=== PATIENT | male | born 1960 | race Asian ===

== ENCOUNTER 2018-12-08 15:19 | Emergency (ER) | payer BC ==
--- NOTE | 2018-12-08 15:31 | ED Physician Documentation ---
PD HPI ABD PAIN - Stated complaint Stated Complaint: ABD PX/NAUSEA - Chief complaint Chief Complaint: Abd Pain - History obtained from History obtained from: Patient - History of Present Illness Timing - onset: How many hours ago (2) Timing - details: Abrupt onset, Still present Quality: Cramping, Aching, Pain Location: RUQ, Epigastric Radiation: No: Lower back, Left flank, Right flank Improved by: No: Laying still, BM Worsened by: Moving, Palpation Associated symptoms: Nausea. No: Fever, Vomiting, Diarrhea, Dysuria Similar symptoms before: Has not had sx before (had abrupt pain in flank due to kidney stone about 5 years ago. Had not had pain in this area before.) Recently seen: Not recently seen Review of Systems Constitutional: denies: Fever, Chills, Myalgias Nose: denies: Rhinorrhea / runny nose, Congestion Throat: denies: Sore throat Respiratory: denies: Cough GI: reports: Abdominal Pain, Nausea. denies: Abdominal Swelling, Vomiting, Diarrhea : denies: Dysuria, Frequency Skin: denies: Rash, Lesions PD PAST MEDICAL HISTORY - Past Medical History Cardiovascular: None Respiratory: None Neuro: None Endocrine/Autoimmune: None GI: None : Kidney stones Musculoskeletal: None - Present Medications Home Medications: Ambulatory Orders Medication Instructions Recorded Confirmed Dicyclomine [Bentyl] 10 mg PO QID PRN #15 capsule 12/08/18 Hydrocodone/Acetaminophen [[place] 1 each PO Q6H PRN #15 tablet 12/08/18 5-325 Tablet] Ondansetron Odt [Zofran] 4 mg TL Q6H PRN #10 tablet 12/08/18 - Allergies Allergies/Adverse Reactions: Allergies Allergy/AdvReac Type Severity Reaction Status Date / Time No Known Drug Allergies Allergy Verified 12/08/18 15:28 PD ED PE NORMAL - Vitals Vital signs reviewed: Yes - General General: Alert and oriented X 3, Well developed/nourished, Other (appears in pain markedly, in upper abd. ) - HEENT HEENT: Pharynx benign - Neck Neck: Supple, no meningeal sign, No adenopathy - Cardiac Cardiac: RRR, No murmur - Respiratory Respiratory: Clear bilaterally - Abdomen Abdomen: Soft, Non distended, No organomegaly, Other (markedly tender upper abd mid and right. Lower abd not tender. Has percussion tenderness upper abd. Bowel sounds diminished. ) Results - Vitals Vitals: Vital Signs - 24 hr 12/08/18 12/08/18 12/08/18 15:25 17:28 18:44 Temperature 36.5 C 36.8 C Heart Rate 49 L 60 52 L Respiratory 19 18 14 Rate Blood Pressure 148/75 H 108/75 119/72 O2 Saturation 99 97 96 Oxygen O2 Source Room air - Labs Labs: Laboratory Tests 12/08/18 12/08/18 12/08/18 16:00 16:43 17:20 WBC 9.8 RBC 5.00 Hgb 14.4 Hct 43.6 MCV 87.2 MCH 28.8 MCHC 33.0 RDW 12.5 Plt Count 177 MPV 11.7 H Neut # (Auto) 8.0 H Lymph # (Auto) 1.2 L [place] # (Auto) 0.5 Eos # (Auto) 0.0 Baso # (Auto) 0.0 Absolute Nucleated RBC 0.00 Nucleated RBC % 0.0 Sodium 143 Potassium 4.2 Chloride 110 Carbon Dioxide 27 Anion Gap 6.0 BUN 21 H Creatinine 0.9 Estimated GFR (MDRD) 86 L Glucose 114 H Calcium 8.8 Total Bilirubin 0.9 AST 84 H ALT 52 Alkaline Phosphatase 58 Total Protein 6.3 L Albumin 3.8 Globulin 2.5 Albumin/Globulin Ratio 1.5 Lipase 57 H Urine Color YELLOW Urine Clarity CLEAR Urine pH 7.0 Ur Specific [place] 1.020 Urine Protein TRACE Urine Glucose (UA) NEGATIVE Urine Ketones NEGATIVE Urine Occult Blood NEGATIVE Urine Nitrite NEGATIVE Urine Bilirubin NEGATIVE Urine Urobilinogen 0.2 (NORMAL) Ur Leukocyte Esterase NEGATIVE Ur Microscopic Review NOT INDICATED Urine Culture Comments NOT INDICATED - Rads (name of study) abd CT Radiology: Prelim report reviewed (gall stones. No cholecystitis. CBD 4 mm. Normal appendix. No kidney stones nor hydronephrosis. ), See rad report PD MEDICAL DECISION MAKING - ED course Complexity details: reviewed results, re-evaluated patient (feeling better and has no abd tenderness. ), considered differential (has gallstones in GB on CT, with mild dilated duct 4 mm, and bump on AST and lipase. His pain is much improved with meds and abd not tender on recheck. I presume he had some ductal obstruction with the pain and is now flowing again. ), d/w patient Departure - Departure Disposition: 01 Home, Self Care Clinical Impression: Biliary colic Abdominal pain Qualifiers: Abdominal location: upper abdomen, unspecified Qualified Code(s): R10.10 - Upper abdominal pain, unspecified Condition: Stable Record reviewed to determine appropriate education?: Yes Instructions: ED Gallstone W Biliary Colic Prescriptions: Dicyclomine [Bentyl] 10 mg PO QID PRN #15 capsule PRN Reason: Abdominal Pain Hydrocodone/Acetaminophen [[place] 5-325 Tablet] 1 each PO Q6H PRN #15 tablet PRN Reason: Pain Ondansetron Odt [Zofran] 4 mg TL Q6H PRN #10 tablet PRN Reason: Nausea / Vomiting Comments: The CT scan showed normal appendix kidneys and ureter. There is no kidney stones. There was some enlargement of the gallbladder with what appeared to be some small stones in there. Your blood tests showed a slight elevation of liver enzymes and pancreatic enzyme. This would be suggestive of having had some sludge or small stone passing out from the gallbladder and clogging the bile duct temporarily. Given that you are symptoms are resolved right now it would seem to be passed. Follow-up with your primary care later this week for recheck. They could retest your blood to make sure the liver enzymes have normalized. If you have recurrent episode then you can take the hydrocodone for pain or dicyclomine for pain which is an antispasmodic. Ondansetron if needed for nausea. Return if severe episode despite that. Eat a low-fat diet over the next several days as that will stimulate the gallbladder the least. Discharge Date/Time: 12/08/18 19:03
[2018-12-08] MEDS ORDERED: ONDANSETRON 4 MG/2 ML VIAL IVP STA (15:51)
[2018-12-08] MEDS ORDERED: KETOROLAC 15 MG/ML VIAL IVP STA (15:51)
[2018-12-08] MEDS ORDERED: SODIUM CHLORIDE 0.9% 1,000 ML IV ONE (15:51)
[2018-12-08] MEDS ORDERED: MORPHINE 2 MG/ML CARPUJECT IVP STA (15:51)
[2018-12-08 16:15] LABS: BASOPHILS % (AUTO) 0.4 %; EOSINOPHILS % (AUTO) 0.4 %; HGB - HEMOGLOBIN 14.4 g/dL (14.0-18.0); LYMPHOCYTES # (AUTO) 1.2 10^3/uL (1.5-3.5); LYMPHOCYTES % (AUTO) 11.8 %; MEAN CORPUSCULAR HEMOGLOBIN 28.8 pg (27.0-31.0); MEAN CORPUSCULAR VOLUME 87.2 fL (80.0-94.0); MEAN PLATELET VOLUME 11.7 fL (7.4-11.4); MONOCYTES # (AUTO) 0.5 10^3/uL (0.0-1.0); MONOCYTES % (AUTO) 5.2 %; NEUTROPHILS % (AUTO) 81.6 %; PLT - PLATELET COUNT 177 10^3/uL (130-450); RED CELL DISTRIBUTION WIDTH 12.5 % (12.0-15.0); WHITE BLOOD COUNT 9.8 x10^3/uL (4.8-10.8)
[2018-12-08 17:11] LABS: ALBUMIN 3.8 g/dL (3.2-5.5); ALBUMIN/GLOBULIN RATIO 1.5 (1.0-2.2); BILIRUBIN,TOTAL 0.9 mg/dL (0.2-1.0); CALCIUM 8.8 mg/dL (8.5-10.3); CREATININE 0.9 mg/dL (0.6-1.2); TOTAL PROTEIN 6.3 g/dL (6.7-8.2)
[2018-12-08 17:32] LABS: BILIRUBIN,URINE NEGATIVE (NEGATIVE); CLARITY,URINE CLEAR (CLEAR); GLUCOSE, URINE (UA) NEGATIVE (NEGATIVE); KETONES,URINE (UA) NEGATIVE (NEGATIVE); LEUKOCYTE ESTERASE, URINE NEGATIVE (NEGATIVE); NITRITE,URINE NEGATIVE (NEGATIVE); OCCULT BLOOD,URINE NEGATIVE (NEGATIVE); PROTEIN,URINE TRACE mg/dL (NEGATIVE); UROBILINOGEN,URINE 0.2 (NORMAL) E.U./dL (NORMAL)
[2018-12-08] MEDS ORDERED: IOVERSOL 320 100 ML VIAL IVP ONE ×2 (17:35→17:51)
--- NOTE | 2018-12-08 18:23 | CT Report ---
Reason: acute onset mid/upper abd pain 3 hrs ago Procedure Date: 12/08/2018 Accession Number: [id number] / [id number] Procedure: CT - Abdomen/Pelvis W CPT Code: FULL RESULT: EXAM: CT ABDOMEN AND PELVIS EXAM DATE: 12/08/2018 05:37 PM. CLINICAL HISTORY: Acute onset mid/upper abd pain 3 hrs ago. COMPARISONS: None. TECHNIQUE: Routine helical CT imaging was performed through the abdomen and pelvis. IV contrast: OPTI 320 90ML. Enteric contrast: No. Reconstructions: Coronal and sagittal. In accordance with CT protocol optimization, one or more of the following dose reduction techniques were utilized for this exam: automated exposure control, adjustment of mA and/or KV based on patient size, or use of iterative reconstructive technique. FINDINGS: Lung Bases: Unremarkable. Liver: Normal. No masses. Gallbladder/Bile Ducts: There is likely cholelithiasis. There is mild dilatation of the common bile duct. No evidence of significant intrahepatic bile duct dilatation. Spleen: Normal. Pancreas: Normal. Adrenal Glands: Normal. Kidneys: Normal. No masses or hydronephrosis. Peritoneal Cavity/Bowel: Normal. No free fluid, free air or adenopathy. No masses or acute inflammatory process. The appendix is well visualized and normal. Pelvic Organs: Normal. The bladder and visualized pelvic organs are within normal limits. Vasculature: No aneurysms or other significant abnormality. Bones: No significant abnormality. Other: None. IMPRESSION: 1. There is possible cholelithiasis. There is mild dilatation of the common bile duct. No evidence of intrahepatic bile duct dilatation. 2. Otherwise negative contrast-enhanced CT of the abdomen and pelvis. There is no evidence of bowel obstruction or appendicitis. [facility]
[2018-12-08] MEDS ORDERED: ONDANSETRON ODT 4 MG Prepack 2 TL PRN (18:33)
[2018-12-08] MEDS ORDERED: HYDROcod/ACET 5/325 Prepack 4 PO STA (18:33)
[2018-12-08 18:45] VITALS: BP 119/72
== END 2018-12-08 19:03 | disposition home or self-care (01) ==
LOC: ED 15:19
DX: K80.20 Calculus of gallbladder without cholecystitis without obstruction (principal); R74.8 Abnormal levels of other serum enzymes
CPT/HCPCS: 36415; 74177; 80053; 81003; 83690; 85025; 96361; 96374; 96375; 99284; Q9967; 81001; 87086